=== PATIENT | female | born 1965 | race African-American/Black ===

== ENCOUNTER 2025-04-10 22:20 | Emergency (ER) | payer OTHER ==
[2025-04-10 22:30] VITALS: BP 175/110; PULSE 109; RESP 19; TEMP 98.1; BMI 26.9
== END 2025-04-10 23:01 | disposition home or self-care (01) ==
LOC: JER 22:20 → MERGE 22:20 → JER 23:01
DX: F10.90 Alcohol use, unspecified, uncomplicated (principal); R00.0 Tachycardia, unspecified; I10 Essential (primary) hypertension; F41.9 Anxiety disorder, unspecified
CPT/HCPCS: 99283-25